=== PATIENT | male | born 1940 | race Caucasian/White ===

== ENCOUNTER 2018-06-20 23:53 | Inpatient (IN) | payer OTHER, MEDICARE ==
[~2018-06-20] VITALS: Ht 160 cm; Wt 65.3 kg
[2018-06-21] VITALS (8 sets, daily range): BP systolic 136–160; BP diastolic 69–78
--- NOTE | 2018-06-21 01:21 | NUR ---
ADMISSION: ARRIVAL OF PT IS 0005. RECEIVED REPORT FROM PORSHA LA RN FROM [facility]. PT CAME TO [place] [facility] FOR INTERMITTENT CHEST PAIN X 5DAYS DURATION ACCOMPANIED BY UPPER ABDOMINAL PAIN. PER REPORT BLOOD WORKS PERFORMED AND IMAGING/CT SCAN, TROPONIN POSITIVE, AND CT REVEALS POSSIBLE PANCREATITIS, DUODENITIS, WBC, LIPASE AND BILI ELEVATED. PT BROUGHT TO THE UNIT VIA STRETCHER ACCOMPANIED BY EMT. KEPT COMFORTABLE IN BED, ORIENTED TO UNIT POLICY AND HOURLY ROUNDING AND USE OF CALL LIGHT SYSTEM. INVENTORY OF BELONGING COMPLETED BY MARIA LUISA STRATTON. ADMISSION INTERVIEW PERFORMED. PT IS A/O X 3, [facility] SPEAKING ONLY. [facility] [place] SPEAKER ATBED SIDE FOR TRANSLATION PURPOSES. SKIN ASSESSMENT PERFORMED, PLEASE SEE SKIN ASSESSMENT LOG FOR COMPLETE DETAILS. VS TAKEN AND RECORDED. PT STATED HE'S CHEST PAIN IS A LOT BETTER AND ITS THE ABDOMEN WHOSE BOTHERING HIM. SAFETY PRECAUTIONS FOR FALL INITIATED, CALL LIGHT IN REACH. LOOM OVERHAULER MD MADE AWARE OF PT'S ARRIVAL TO UNIT, AND TO GET ADMITTING ORDERS.
[2018-06-21] MEDS ORDERED: MAG HYDROX/AL HYDROX/SIMETH 30 ML UDC PO PRN (01:30)
[2018-06-21] MEDS ORDERED: MAGNESIUM HYDROXIDE 30 ML UDC PO PRN (01:30)
[2018-06-21] MEDS ORDERED: ACETAMINOPHEN 325 MG TABLET PO PRN (01:30)
[2018-06-21] MEDS ORDERED: MORPHINE SULFATE INJ 2 MG/ML DISP.SYRIN IV PRN (01:30)
[2018-06-21] MEDS ORDERED: ONDANSETRON HCL/PF 4 MG/2 ML VIAL IVP PRN (01:30)
[2018-06-21] MEDS ORDERED: Z GUARD REMEDY 2 OZ OINT TP PRN (01:30)
[2018-06-21] MEDS ORDERED: ZOLPIDEM TARTRATE 5 MG TABLET PO PRN (01:30)
--- NOTE | 2018-06-21 01:30 | NUR ---
RN NOTES: PER REPORT FROM [facility], TROPONIN RESULT FOLLOWS: 0438PM 0.53 0600PM 0.51 0910PM 0.46
[2018-06-21] MEDS: IV NS 0.9% 1,000 ML IV SCH ×3 (02:24→21:36)
[2018-06-21] MEDS ORDERED: DULO20CA PO (02:29)
[2018-06-21] MEDS ORDERED: HYDR-3028 PO (02:29)
[2018-06-21] MEDS ORDERED: ATOR20TA PO (02:29)
[2018-06-21] MEDS ORDERED: ATEN50TA PO (02:29)
[2018-06-21] MEDS ORDERED: CLON0.1T PO (02:29)
--- NOTE | 2018-06-21 02:30 | NUR ---
RN NOTES: PT SLEEPING COMFORTABLY, NO FACIAL GRIMACE NOTED, RESPIRATION EVEN AND UNLABORED.
--- NOTE | 2018-06-21 05:59 | NUR ---
RN NOTES: OFFERED PAIN MEDICATION, BUT PT REFUSED CLAIMED HE DOESN'T HAVE PAIN AT THIS TIME, ALL TRANSLATED BY AKANKSHA SPEAKING FROZEN YOGURT MAKER
--- NOTE | 2018-06-21 06:34 | NUR ---
RN CLOSING NOTES: PT IN BED, AWAKE, REMAINS ON RA RESPIRATION EVEN AND UNLABORED, REMAINS NPO , DENIES ANY PAIN OR DISCOMFORT AT THIS TIME. IV ACCESS REMAINS PATENT AND FLUSHING WELL. VS REMAINS STABLE, NEEDS ATTENDED. SAFETY PRECAUTIONS FOR FALL REMAINS ENGAGED, CALL LIGHT IN REACH, WILL ENDORSE TO DAY RN FOR CONTINUITY OF CARE.
[2018-06-21 06:51] LABS: BASOPHILS % (AUTO) 0.2 % (0.0-2.0); EOSINOPHILS % (AUTO) 7.1 % (0.0-6.0); HEMATOCRIT 35 % (39-51); HEMOGLOBIN 11.3 g/dL (13.5-17.5); MEAN CORPUSCULAR HGB CONC 32 g/dl (31.0-36.0); MEAN CORPUSCULAR VOLUME 91 fL (80-96); MONOCYTES # (AUTO) 0.8 /CMM (0.1-1.30); MONOCYTES % (AUTO) 4.2 % (2.0-12.0); NEUTROPHILS # (AUTO) 12.8 /CMM (1.8-8.9); NEUTROPHILS % (AUTO) 67.5 % (43.0-81.0); PLATELET COUNT (AUTO) 258 /CMM (150-450); RED BLOOD CELL COUNT(AUTO) 3.81 MIL/uL (4.5-6.0)
[2018-06-21 07:07] LABS: CALCIUM, SERUM 8.3 mg/dL (8.5-10.1); CARBON DIOXIDE 20 mmol/L (21-32); CHLORIDE 110 mmol/L (98-107); GLUCOSE 91 mg/dL (74-106); PHOSPHORUS 3.2 mg/dL (2.5-4.9); POTASSIUM 4.7 mmol/L (3.5-5.1); SODIUM SERUM 142 mmol/L (136-145); UREA NITROGEN, BLOOD 48 mg/dL (7-18)
[2018-06-21 07:08] LABS: CHOLESTEROL 82 mg/dL (<200); LDL 59 mg/dL (0-99); TRIGLYCERIDES 111 mg/dL (30-150)
[2018-06-21 07:10] LABS: HDL CHOLESTEROL < 10 mg/dL (40-60)
[2018-06-21 07:29] LABS: LIPASE 3903 U/L (73-393)
--- NOTE | 2018-06-21 07:47 | NUR ---
MS/RN OPENING NOTE PATIENT IN BED IN STABLE CONDITION. A/O X 3, BRITISH SPEAKING. NO SIGNS OF ACUTE DISTRESS. NO COMPLAIN OF PAIN OR DISCOMFORT. NPO STATUS AT THIS TIME SECONDARY TO PANCREATITIS DIAGNOSIS. ON 0.9% IV FLUIDS AT 100MLS/HR. ALL NEEDS ATTENDED TO. CALL LIGHT WITHIN REACH. WILL CONTINUE TO MONITOR TO ENSURE SAFETY.
[2018-06-21] MEDS ORDERED: FURO40TA5 PO (07:55)
[2018-06-21] MEDS ORDERED: CLOP75TA15 PO (07:55)
[2018-06-21] MEDS ORDERED: NIFE60TA73 PO (07:55)
[2018-06-21] MEDS ORDERED: LISI10TA5 PO (07:55)
[2018-06-21] MEDS ORDERED: ESOM40CA52 PO (07:55)
[2018-06-21] MEDS ORDERED: DULO30CA51 PO (07:55)
--- NOTE | 2018-06-21 08:03 | NUR ---
MS/RN SPOKE WITH DR GAINES AND MADE AWARE ADMISSION MED RECON NEEDS TO BE DONE AND ALSO GOT ORDERED FOR CLEAR LIQUIDS, DC NPO
[2018-06-21] MEDS: MORPHINE SULFATE INJ 4 MG/ML DISP.SYRIN IV PRN ×3 (09:13→20:17)
--- NOTE | 2018-06-21 09:47 | NUR ---
MS/RN RECEIVED CALL FROM YUSEF FROM LAB AND SHE NOTIFIED PATIENT TROPONIN RESULT OF 0.792CH. DR GAINES AWARE. PER DR GAINES SWITCH PATIENT TO TELE.
[2018-06-21] MEDS: CLONIDINE HCL 0.1 MG TABLET PO SCH (17:36)
--- NOTE | 2018-06-21 18:33 | NUR ---
MS/RN CLOSING NOTE PATIENT IN BED IN STABLE CONDITION. A/O X 3, KYRGYZ SPEAKING. AMBULATORY WITH ASSISTANCE AND CANE. NO SIGNS OF ACUTE DISTRESS. NO COMPLAIN OF PAIN OR DISCOMFORT AT THIS TIME. ON IV FLUIDS RIGHT UPPER ARM 22G IV SITE CLEAN, DRY AND INTACT. ALL NEEDS ATTENDED TO. CALL LIGHT WITHIN REACH. WILL ENDORSE TO NEXT SHIFT FOR CONTINUITY OF CARE.
--- NOTE | 2018-06-21 19:15 | NUR ---
RN INITIAL NOTES: RECEIVED REPORT FROM KRISTOPHER SMART. PT AWAKE, A/O X4, ON RA RESPIRATION EVEN AND UNLABORED. PT C/O PAIN ON THE ABDOMEN, INFORMED THAT MORPHINE IS DUE AT 0800PM, PT WILLING TO WAIT FOR MORPHINE, DOES NOT WANT NORCO. COMMUNICATION TRANSLATED BY MONGOLIAN SPEAKING STAFF. IV ACCESS PATENT AND FLUSHING WELL, INFUSING WITH NS AT 100ML/HR. URINAL WITHIN REACH. SAFETY PRECAUTIONS FOR FALL INITIATED, CALL LIGHT IN REACH, WILL CONTINUE MONITORING PT.
--- NOTE | 2018-06-21 19:30 | NUR ---
rn notes: placed by day rn for tele observation as troponin elevated, md aware, on sinus rhythm hr 77
--- NOTE | 2018-06-21 20:18 | NUR ---
PRN MORPHINE: PT C/O ABDOMINAL PAIN 03/07 REQUESTING FOR MORPHINE, PRN MORPHINE 2MG IVP ADMINISTERED TO THE PT AT THIS TIME, WILL COTNINUE TO MONITOR AND REASSESS
[2018-06-22] MEDS: MORPHINE SULFATE INJ 4 MG/ML DISP.SYRIN IV PRN ×4 (05:52→22:01)
--- NOTE | 2018-06-22 05:53 | NUR ---
PRN MORPHINE: PT C/O MEDIAL ABDOMINAL PAIN 03/07 REQUESTING FOR MORPHINE, PRN MORPHINE 2MG IVP ADMINISTERED TO THE PT AT THIS TIME, WILL CONTINUE TO MONITOR AND REASSESS PAIN LEVEL
--- NOTE | 2018-06-22 06:36 | NUR ---
RN CLOSING NOTES: PT RESTING IN BED, REMAIN ON RA DENIES ANY SOB, LAST PAIN MEDS ADMINISTERED AT 0600AM. IV ACCESS REMAINS PATENT AND FLUSHING WELL, INFUSING WITH NS AT 100ML/HR. BLE OFFLOADED. VS REMAINS STABLE, NEEDS ATTENDED. SAFETY PRECAUTIONS FOR FALL REMAINS ENGAGED, CALL LIGHT IN REACH, WILL ENDORSE TO DAY RN FOR CONTINUITY OF CARE.
[2018-06-22 06:41] LABS: BASOPHILS % (AUTO) 0.1 % (0.0-2.0); EOSINOPHILS % (AUTO) 0.3 % (0.0-6.0); HEMATOCRIT 34 % (39-51); LYMPHOCYTES # (AUTO) 1.7 /CMM (0.8-4.8); LYMPHOCYTES % (AUTO) 12.2 % (20.0-44.0); MEAN CORPUSCULAR HGB CONC 33 g/dl (31.0-36.0); MEAN CORPUSCULAR VOLUME 91 fL (80-96); MONOCYTES # (AUTO) 0.5 /CMM (0.1-1.30); MONOCYTES % (AUTO) 3.6 % (2.0-12.0); NEUTROPHILS # (AUTO) 11.4 /CMM (1.8-8.9); NEUTROPHILS % (AUTO) 83.8 % (43.0-81.0); PLATELET COUNT (AUTO) 288 /CMM (150-450); RED BLOOD CELL COUNT(AUTO) 3.72 MIL/uL (4.5-6.0); WHITE BLOOD COUNT (AUTO) 13.6 K/uL (4.3-11.0)
[2018-06-22 07:02] LABS: ALANINE AMINOTRANSFERASE 7 U/L (12-78); ALBUMIN 1.7 g/dL (3.4-5.0); ALKALINE PHOSPHATASE 54 U/L (46-116); ASPARTATE AMINOTRANSFERASE 21 U/L (15-37); BILIRUBIN,DIRECT 0.5 mg/dL (0.0-0.2); BILIRUBIN,TOTAL 0.9 mg/dL (0.2-1.0); CALCIUM, SERUM 8.5 mg/dL (8.5-10.1); CARBON DIOXIDE 22 mmol/L (21-32); CHLORIDE 111 mmol/L (98-107); GLUCOSE 99 mg/dL (74-106); MAGNESIUM 1.8 mg/dL (1.8-2.4); PHOSPHORUS 4.2 mg/dL (2.5-4.9); SODIUM SERUM 142 mmol/L (136-145); TOTAL PROTEIN, SERUM 6.9 g/dL (6.4-8.2); UREA NITROGEN, BLOOD 50 mg/dL (7-18)
--- NOTE | 2018-06-22 07:10 | NUR ---
TROP 0.582: TROPONIN RESULT REPORTED BY YUSEF FROM LAB, TROP 0.582, CURRENTLY IN THE UNIT, WITH ORDERS FOR TROP Q6HRS, AND WILL CONTINUE TO MONITOR
--- NOTE | 2018-06-22 07:15 | NUR ---
MS/RN OPENING NOTE THE PATIENT IS RECEIVED AWAKE AND IN BED. ALERT AND ORIENTED X4. DENIES SOB. RESPIRATION REGULAR AND UNLABORED. COMPLAINS OF ABDOMINAL PAIN / BUT DOES NOT WANT MEDICATION AT THIS TIME. WILL OFFER PAIN MEDICATION LATER AGAIN. MATHEUS G 22 PATENT AND NORMAL SALINE INFUSING AT 100ML/HR AND NO S/S INFILTRATION NOTED. RAC G 20 PATENT AND SALINE LOCKED. BED LOW AND LOCKED. SIDE RAILS UP X3. CALL LIGHT WITHIN REACH. ENCOURAGED TO PRESS THE CALL LIGHT FOR ASSISTANCE. WILL CONTINUE TO MONITOR.
[2018-06-22 08:00] VITALS: BP 147/68
[2018-06-22] MEDS: CLOPIDOGREL BISULFATE 75 MG TABLET PO SCH (09:15)
[2018-06-22] MEDS: DULOXETINE HCL 30 MG CAPSULE.DR PO SCH (09:15)
[2018-06-22] MEDS: ATENOLOL 50 MG TABLET PO SCH (09:16)
[2018-06-22] MEDS: NIFEdipine XL (30MG) 30 MG TAB PO SCH (09:16)
[2018-06-22] MEDS: IV NS 0.9% 1,000 ML IV SCH ×2 (09:18→17:51)
--- NOTE | 2018-06-22 16:00 | NUR ---
MS/RN NOTE DR GAINES IS MADE AWARE KUB RESULT AND PER MD NO NEW ORDER.
[2018-06-22 16:16] VITALS: BP 134/55
--- NOTE | 2018-06-22 16:52 | NUR ---
MS/RN NOTE DR GAINES IS MADE AWARE OF MRSA NARES AND NEW ORDER OF BACTORBEN IS RECEIVED. THE ORDER IS READ BACK, VERIFIED. NOTED AND CARRIED OUT.
[2018-06-22] MEDS: CLONIDINE HCL 0.1 MG TABLET PO SCH (17:50)
--- NOTE | 2018-06-22 18:13 | NUR ---
MS/RN CLOSING NOTE PATIENT ALERT AND ORIENTED X4. DENIES PAIN AT THIS TIME. RESPIRATION REGULAR AND UNLABORED AND DENIES PAIN. PATIENT IN NO APPARENT DISTRESS. MATHEUS G 22 PATENT AND NORMAL SALINE INFUSING AT 100ML/HR AND NO S/S INFILTRATION. RAC G 20 PATENT AND SALINE LOCKED. BED LOW AND LOCKED. SIDE RAILS UP X3. CALL LIGHT WITHIN REACH. BED ALARM ON. WILL ENDORSE TO ANIMAL HERDER.
--- NOTE | 2018-06-22 19:25 | NUR ---
RN OPENING NOTE Patient received in awake bed. Alert, oriented x 4. Breathing even and unlabored. Not in any distress. Peripheral IV infusing at 100mL/hr. IV site on RAC g#22 patent, S/L. Call arnold within reach. Bed in low, locked position. Patient stable as endorsed by the AM nurse. Will continue to monitor accordingly.
[2018-06-22 20:00] VITALS: BP 129/66
[2018-06-22] MEDS: MUPIROCIN OINT 2% 22 GM TUBE SCH (20:46)
--- NOTE | 2018-06-22 22:03 | NUR ---
RN NOTES PT C/O ABDOMINAL PAIN, 04/07. PRN MORPHINE 2MG IVP GIVEN ORDERED. WILL CONTINUE TO MONITOR AND REASSESS PAIN LEVEL
[2018-06-23] MEDS: IV NS 0.9% 1,000 ML IV SCH (04:07)
[2018-06-23] MEDS: MORPHINE SULFATE INJ 4 MG/ML DISP.SYRIN IV PRN ×2 (04:13→17:50)
--- NOTE | 2018-06-23 04:15 | NUR ---
RN NOTES PT C/O ABDOMINAL PAIN 03/07 REQUESTING FOR MORPHINE, PRN MORPHINE 2MG IVP ADMINISTERED TO THE PT ORDERED. WILL CONTINUE TO MONITOR AND REASSESS PAIN LEVEL
--- NOTE | 2018-06-23 06:33 | NUR ---
RN CLOSING NOTES Patient resting in bed, remains on room air. Denies any SOB. Last pain medication administered at 04:13hrs with good results. Peripheral IV on MATHEUS infusing at 100 mL/hr. Patient able to ambulate to the bathroom with minimal assist. Contact precautions maintained. Call light within reach. Bed in low, locked position. Will endorse CLARENCE to oncoming RN.
--- NOTE | 2018-06-23 07:53 | NUR ---
MS RN OPENING NOTES RECEIVED PT FROM NIGHTSHIFT NURSE IN STABLE CONDITION. PT IS A./O X3. NO SOB NOTED. BREATHING IS EVEN AND UNLABORED. PT ON RA AND SATING WELL. HE COMPLAINS OF LOWER ABDOMINAL PAIN AT THIS TIME RATED A 6/10. WILL ADMINISTER PRN PAIN MEDICATION. IV(S) TO RIGHT FOREARM NOTED TO BE PATENT AND INTACT. NO REDNESS OR SIGNS OF INFILTRATION NOTED. BED IN LOW LOCKED POSITION, SIDE RAILS UP X2, CALL LIGHT WITHIN REACH, CONTACT ISOLATION OBSERVED. WILL CONTINUE TO MONITOR
[2018-06-23] MEDS: CLOPIDOGREL BISULFATE 75 MG TABLET PO SCH (08:58)
[2018-06-23] MEDS: HYDROCODONE/APAP 5/325MG 1 EACH TABLET PO PRN (08:59)
[2018-06-23] MEDS: NIFEdipine XL (30MG) 30 MG TAB PO SCH (08:59)
[2018-06-23] MEDS: DULOXETINE HCL 30 MG CAPSULE.DR PO SCH (08:59)
[2018-06-23] MEDS: MUPIROCIN OINT 2% 22 GM TUBE SCH ×2 (09:00→20:42)
[2018-06-23] MEDS: ATENOLOL 50 MG TABLET PO SCH (09:08)
--- NOTE | 2018-06-23 11:36 | NUR ---
MS RN NOTES: DIETARY ORDER CLARIFICATION DR GAINES CONTACTED PT'S DIET ORDER WAS CANCELLED. PER MD "PT WILL BE SEEN BY GI, KEEP NPO UNTIL THEN"
[2018-06-23 12:00] LABS: CALCIUM, SERUM 8.6 mg/dL (8.5-10.1); CARBON DIOXIDE 18 mmol/L (21-32); CHLORIDE 111 mmol/L (98-107); CREATININE 1.6 mg/dL (0.6-1.3); GLUCOSE 122 mg/dL (74-106); MAGNESIUM 2.1 mg/dL (1.8-2.4); PHOSPHORUS 3.2 mg/dL (2.5-4.9); POTASSIUM 4.5 mmol/L (3.5-5.1); SODIUM SERUM 141 mmol/L (136-145); UREA NITROGEN, BLOOD 57 mg/dL (7-18)
[2018-06-23 12:19] LABS: BASOPHILS % (AUTO) 0.1 % (0.0-2.0); EOSINOPHILS % (AUTO) 0.8 % (0.0-6.0); HEMATOCRIT 36 % (39-51); HEMOGLOBIN 11.7 g/dL (13.5-17.5); LYMPHOCYTES # (AUTO) 1.3 /CMM (0.8-4.8); LYMPHOCYTES % (AUTO) 12.9 % (20.0-44.0); MEAN CORPUSCULAR HGB CONC 33 g/dl (31.0-36.0); MEAN CORPUSCULAR VOLUME 91 fL (80-96); MONOCYTES # (AUTO) 0.2 /CMM (0.1-1.30); MONOCYTES % (AUTO) 2.2 % (2.0-12.0); NEUTROPHILS # (AUTO) 8.1 /CMM (1.8-8.9); PLATELET COUNT (AUTO) 327 /CMM (150-450); RED BLOOD CELL COUNT(AUTO) 3.94 MIL/uL (4.5-6.0); WHITE BLOOD COUNT (AUTO) 9.7 K/uL (4.3-11.0)
[2018-06-23] MEDS: IV NS 0.9% 1,000 ML IV PRN (12:30)
--- NOTE | 2018-06-23 17:35 | NUR ---
MS RN NOTES; GI CONSULT DR LOPEZ AT BEDSIDE. PER MD "PT MAY RESUME CLEAR LIQUID DIET, AND ORDER A CT OF HIS ABDOMEN WITH CONTRAST". WILL CARRY OUT ORDERS
[2018-06-23] MEDS: CLONIDINE HCL 0.1 MG TABLET PO SCH (18:00)
--- NOTE | 2018-06-23 18:39 | NUR ---
MS RN NOTES: CT ABDOMEN WITH CONTRAST DR LOPEZ MADE AWARE OF PT'S CREATINE LEVEL AND RADIOLOGIST'S CONCERNS WITH THE CONTRAST MEDIA. PER MD "OBTAIN A CT OF TH E ABDOMEN AND PLEVIS WITH OUT CONTRAST INSTEAD" .
--- NOTE | 2018-06-23 19:03 | NUR ---
MS RN CLOSING NOTES PT REMAINS STABLE. VITALS STABLE THROUGHOUT SHIFT. IV REMAINS PATENT AND INTACT. PT BEING TAKEN DOWN FOR CT SCAN. SAFETY AND ISOLATION MEASURES REMAIN IN PLACE. WILL ENDORSE TO NIGHTSHIFT RN FOR CLARENCE
[2018-06-23 19:06] VITALS: BP 121/68
[2018-06-23 20:00] VITALS: BP 127/65
--- NOTE | 2018-06-23 20:49 | NUR ---
RN NOTE CALLED DR LYUBOV Garcia AND NOTIFIED DOCTOR REGARDING CT SCAN OF THE ABD AND PELVIC RESULTS, NO NEW ORDERS GIVEN AT THIS TIME
[2018-06-24] MEDS: IV NS 0.9% 1,000 ML IV PRN ×2 (05:20→21:27)
[2018-06-24] MEDS: HYDROCODONE/APAP 5/325MG 1 EACH TABLET PO PRN (06:22)
--- NOTE | 2018-06-24 07:30 | NUR ---
MS RN RECEIVED ON BED, AWAKE,ALERT,ORIENTED X4,NOT IN ANY FORM OF DISTRESS, RESPIRATIONS EVEN AND UNLABORED,NO SOB NOTED, WILL MONITOR PATIENT'S CONDITION.
[2018-06-24 08:00] VITALS: BP 112/62
[2018-06-24 08:49] LABS: EOSINOPHILS % (AUTO) 0.2 % (0.0-6.0); HEMATOCRIT 34 % (39-51); HEMOGLOBIN 11.2 g/dL (13.5-17.5); LYMPHOCYTES # (AUTO) 0.7 /CMM (0.8-4.8); LYMPHOCYTES % (AUTO) 7.1 % (20.0-44.0); MEAN CORPUSCULAR HGB CONC 33 g/dl (31.0-36.0); MEAN CORPUSCULAR VOLUME 91 fL (80-96); MONOCYTES # (AUTO) 0.3 /CMM (0.1-1.30); MONOCYTES % (AUTO) 3.6 % (2.0-12.0); NEUTROPHILS # (AUTO) 8.3 /CMM (1.8-8.9); NEUTROPHILS % (AUTO) 89.1 % (43.0-81.0); PLATELET COUNT (AUTO) 343 /CMM (150-450); WHITE BLOOD COUNT (AUTO) 9.4 K/uL (4.3-11.0)
[2018-06-24 08:54] LABS: CALCIUM, SERUM 8.3 mg/dL (8.5-10.1); CARBON DIOXIDE 18 mmol/L (21-32); CHLORIDE 112 mmol/L (98-107); CREATININE 1.7 mg/dL (0.6-1.3); GLUCOSE 145 mg/dL (74-106); POTASSIUM 4.5 mmol/L (3.5-5.1); SODIUM SERUM 143 mmol/L (136-145); UREA NITROGEN, BLOOD 58 mg/dL (7-18)
--- NOTE | 2018-06-24 09:30 | NUR ---
MS SMART BREAKFAST SERVED,DUE MEDS GIVEN,TOLERATED WELL.
[2018-06-24] MEDS ORDERED: FLUCONAZOLE IN NS 100 MG in PREMIX 1 EA IV SCH ×2 (10:00)
[2018-06-24] MEDS: CLOPIDOGREL BISULFATE 75 MG TABLET PO SCH (10:17)
[2018-06-24] MEDS: DULOXETINE HCL 30 MG CAPSULE.DR PO SCH (10:17)
[2018-06-24] MEDS: NIFEdipine XL (30MG) 30 MG TAB PO SCH (10:17)
[2018-06-24] MEDS: ATENOLOL 50 MG TABLET PO SCH (10:18)
[2018-06-24] MEDS: FLUCONAZOLE (100 MG) 100 MG TABLET PO SCH (10:20)
--- NOTE | 2018-06-24 10:45 | NUR ---
MS SMART WAS SEEN BY DR. NOEL Hernandez/ ORDERS MADE AND CARRIED OUT.
[2018-06-24] MEDS: MUPIROCIN OINT 2% 22 GM TUBE SCH ×2 (10:58→21:43)
--- NOTE | 2018-06-24 11:05 | NUR ---
WOUND CARE CONSULT WOUND CARE RECEIVED CONSULT FOR RIGHT TOE WOUND. WOUND CARE WILL DEFER CONSULT AND TREATMENT PLANS TO DPM DR AC HE IS CURRENTLY FOLLOWING THIS PATIENT. PATIENT WITH CRISPIN AT 17, ALL PRESSURE ULCER PERVENTION MEASURES ARE NOTED TO BE IN PLACE. WILL SEE PRN.
--- NOTE | 2018-06-24 11:30 | NUR ---
MS RN WAS SEEN BY DR. RICARDO Hernandez/ ORDERS MADE AND CARRIED OUT.
[2018-06-24] MEDS ORDERED: TPN/PPN PER PHARMACY IV PRN (14:00)
--- NOTE | 2018-06-24 15:32 | NUR ---
MS RN NEW PICC LINE INSERTED AT RIGHT UPPER ARM, READY TO USE PER PICC LINE BERRY PAULA.
[2018-06-24 16:00] VITALS: BP 124/64
[2018-06-24 16:57] LABS: MAGNESIUM 2.1 mg/dL (1.8-2.4); PHOSPHORUS 3.1 mg/dL (2.5-4.9)
[2018-06-24] MEDS ORDERED: [UNRECOGNIZED DRUG - OTHER] IV PRN ×4 (17:30)
[2018-06-24] MEDS ORDERED: FEE TPN 1 MIN EA MC ONE (17:31)
[2018-06-24] MEDS: CLONIDINE HCL 0.1 MG TABLET PO SCH (18:00)
--- NOTE | 2018-06-24 18:17 | NUR ---
MS RN ON BED, NO DISTRESS NOTED, STILL WAITING FOR THE TPN IV FROM PHARMACY, NOT YET AVAILABLE.
[2018-06-24] MEDS: BLOOD SUGAR DIAGNOSTIC 1 EACH STRIP IN SCH (18:19)
[2018-06-24] MEDS: INSULIN REGULAR, HUMAN 100 UNIT/ML 3 ML VIAL SQ PRN (18:41)
[2018-06-24 20:00] VITALS: BP 116/65
[2018-06-24 22:00] VITALS: BP 116/65
[2018-06-25] MEDS: BLOOD SUGAR DIAGNOSTIC 1 EACH STRIP IN SCH ×4 (00:15→18:36)
[2018-06-25] MEDS: INSULIN REGULAR, HUMAN 100 UNIT/ML 3 ML VIAL SQ PRN ×3 (00:19→18:46)
[2018-06-25] MEDS: MORPHINE SULFATE INJ 4 MG/ML DISP.SYRIN IV PRN ×2 (03:32→18:36)
--- NOTE | 2018-06-25 03:36 | NUR ---
MS/RN REQUESTED BERRY VALLES, FROM [facility] FOR SAMMARINESE TRANSLATION. PER BERRY VALLES PATIENT IS IN PAIN BUT UNABLE TO SAY PAIN LEVEL, AND PATIENT REQUESTS FOR PAIN MEDICATION. PATIENT IS ALERT AND ORIENTED. MORPHINE 2 MG IVP WAS GIVEN ORDERED. WILL MONITOR.
--- NOTE | 2018-06-25 04:13 | NUR ---
MS/RN PATIENT APPEAR SLEEPING AT THIS TIME, APPEAR COMFORTABLE, NO DISTRESS NOTED, CALL LIGHT IN REACH. WILL CONTINUE TO MONITOR.
--- NOTE | 2018-06-25 06:37 | NUR ---
MS/RN PATIENT IS AWAKE, ALERT, CALM AND COMFORTABLE, NO DISTRESS NOTED, ALL NEEDS ATTENDED AT THIS TIME, WILL CONTINUE TO MONITOR.
--- NOTE | 2018-06-25 07:30 | NUR ---
MS RN RECEIVED ON BED,AWAKE,ALERT,ORIENTED X3,NOT IN ANY FORM OF DISTRESS,RESPIRATIONS EVEN AND UNLABORED,NO SOB NOTED,LUNGS ARE CLEAR,ABDOMEN SOFT,POSITIVE BOWEL SOUNDS,DENIES PAIN AT THIS TIME,WILL MONITOR PATIENT.
[2018-06-25 07:48] LABS: BASOPHILS % (AUTO) 0.1 % (0.0-2.0); EOSINOPHILS % (AUTO) 0.7 % (0.0-6.0); HEMATOCRIT 33 % (39-51); LYMPHOCYTES # (AUTO) 0.9 /CMM (0.8-4.8); LYMPHOCYTES % (AUTO) 8.9 % (20.0-44.0); MEAN CORPUSCULAR HGB CONC 33 g/dl (31.0-36.0); MEAN CORPUSCULAR VOLUME 91 fL (80-96); MONOCYTES # (AUTO) 0.2 /CMM (0.1-1.30); MONOCYTES % (AUTO) 2.2 % (2.0-12.0); NEUTROPHILS # (AUTO) 8.9 /CMM (1.8-8.9); NEUTROPHILS % (AUTO) 88.1 % (43.0-81.0); PLATELET COUNT (AUTO) 366 /CMM (150-450); RED BLOOD CELL COUNT(AUTO) 3.67 MIL/uL (4.5-6.0); WHITE BLOOD COUNT (AUTO) 10.1 K/uL (4.3-11.0)
[2018-06-25 07:56] LABS: ALANINE AMINOTRANSFERASE 23 U/L (12-78); ALKALINE PHOSPHATASE 106 U/L (46-116); ASPARTATE AMINOTRANSFERASE 53 U/L (15-37); BILIRUBIN,TOTAL 1.2 mg/dL (0.2-1.0); CALCIUM, SERUM 8.3 mg/dL (8.5-10.1); CARBON DIOXIDE 18 mmol/L (21-32); CHLORIDE 116 mmol/L (98-107); CREATININE 1.6 mg/dL (0.6-1.3); GLUCOSE 162 mg/dL (74-106); LIPASE 1417 U/L (73-393); MAGNESIUM 2.4 mg/dL (1.8-2.4); PHOSPHORUS 2.5 mg/dL (2.5-4.9); SODIUM SERUM 147 mmol/L (136-145); TOTAL PROTEIN, SERUM 6.7 g/dL (6.4-8.2); UREA NITROGEN, BLOOD 65 mg/dL (7-18)
[2018-06-25 08:00] VITALS: BP 143/59
[2018-06-25 08:33] LABS: ALBUMIN 1.4 g/dL (3.4-5.0)
[2018-06-25] MEDS: ATENOLOL 50 MG TABLET PO SCH (09:00)
[2018-06-25] MEDS: FLUCONAZOLE (100 MG) 100 MG TABLET PO SCH (09:00)
[2018-06-25] MEDS: NIFEdipine XL (30MG) 30 MG TAB PO SCH (09:00)
[2018-06-25] MEDS: CLOPIDOGREL BISULFATE 75 MG TABLET PO SCH (09:00)
[2018-06-25] MEDS: DULOXETINE HCL 30 MG CAPSULE.DR PO SCH (09:00)
--- NOTE | 2018-06-25 09:00 | NUR ---
MS RN NPO AT THIS TIME,WILL MONITOR PATIENT'S CONDITION.
[2018-06-25] MEDS: MUPIROCIN OINT 2% 22 GM TUBE SCH ×2 (09:40→22:50)
[2018-06-25] MEDS ORDERED: [UNRECOGNIZED DRUG - OTHER] IV PRN ×4 (10:00)
--- NOTE | 2018-06-25 10:50 | NUR ---
MS RN WAS SEEN BY DR. COHEN, WILL BE SEEN BY DR. DEAN.
--- NOTE | 2018-06-25 12:30 | NUR ---
MS RN WAS SEEN BY DR. JERMAINE Hernandez/ JOSSE TO INSERT A NASAL JEJUNAL TUBE BY RADIOLOGY.
--- NOTE | 2018-06-25 14:53 | NUR ---
MS RN PATIENT LOOKS COLD AND CLAMMY, BS CHECKED PER CN ORDER - 167 -DIN NOT GIVE COVERAGE WILL RECHECK LATER.
--- NOTE | 2018-06-25 15:00 | NUR ---
MS RN CALLED RADIOLOGY BUT THEY ARE NOT INSERTING THIS TUBE, TEXT DR. COHEN, MADE AWARE THAT TUBE WAS NOT INSERTED.
[2018-06-25 16:00] VITALS: BP 142/70
[2018-06-25] MEDS ORDERED: TPN BAG #2 IV PRN ×2 (16:00)
--- NOTE | 2018-06-25 16:00 | NUR ---
MS RN CALLED DR. DEAN, MADE AWARE THAT TUBE WAS NOT INSERTED,NEDDS TO BE INSERTED BY TRISH MYERS TO CONTINUE TPN PER DR. DEAN
[2018-06-25] MEDS: CLONIDINE HCL 0.1 MG TABLET PO SCH (17:37)
--- NOTE | 2018-06-25 18:05 | NUR ---
MS SMART BS - 150 - 2 UNITS GIVEN.
--- NOTE | 2018-06-25 19:05 | NUR ---
MS RN ON BED, NO DISTRESS NOTED,FAMILY AT BEDSIDE.
[2018-06-25 20:00] VITALS: BP 121/62
--- NOTE | 2018-06-25 20:00 | NUR ---
MS/DIGITAL COMMENTATOR AT BEDSIDE, PER FAMILY THEY HAVE NOT TALKED TO ANY DOCTOR FOR 5 DAYS NOW, SENT MESSAGE DR. COHEN, DR. SILVA WAS HERE AND TALKED TO FAMILY, JASMIN SALDANA RN FROM DAY SHIFT ALSO TALED TO THE FAMILY WHO AGREED TO JUST TALK TO THE DOCTOR IN A.M.
--- NOTE | 2018-06-25 20:00 | NUR ---
MS/RN PATIENT TRYING TO URINATE, URINAL GIVEN, BUT UNABLE TO URINATE, DID BLADDER LHPB=171. WILL MONITOR PATIENT FOR VOIDING, OTHERWISE, WILL GET AN ORDER FOR F/C.
[2018-06-25] MEDS: IV NS 0.9% 1,000 ML IV PRN (20:44)
--- NOTE | 2018-06-25 22:57 | NUR ---
MS/RN NO URINE OUTPUT YET. OBTAINED ORDER FOR F/C FROM SIM MEYER NP.
--- NOTE | 2018-06-25 23:30 | NUR ---
MS/RN F/C INSERTED, 600 MLS, CLEAR, [place] URINE OUTPUT NOTED.
[2018-06-26] VITALS (44 sets, daily range): BP systolic 58–116; BP diastolic 20–74
[2018-06-26] MEDS: BLOOD SUGAR DIAGNOSTIC 1 EACH STRIP IN SCH ×5 (00:17→23:57)
[2018-06-26] MEDS: INSULIN REGULAR, HUMAN 100 UNIT/ML 3 ML VIAL SQ PRN ×3 (00:21→13:16)
--- NOTE | 2018-06-26 01:08 | NUR ---
MS/RN PATIENT IS SLEEPING AT THIS TIME, APPEAR COMFORTABLE, BREATHING EVEN AND UNLABORED, CALL LIGHT IN REACH.WILL CONTINUE TO MONITOR.
--- NOTE | 2018-06-26 06:01 | NUR ---
MS/RN PICC LINE DRESSING CHANGED PER PROTOCOL ASEPTICALLY.
--- NOTE | 2018-06-26 06:02 | NUR ---
MS/RN PATIENT IS SLEEPING, AROUSABLE, APPEAR COMFORTABLE, NO SIGNS OF DISTRESS NOTED, CALL LIGHT IN REACH. ALL NEEDS ATTENDED AT THIS TIME, WILL CONTINUE TO MONITOR.
[2018-06-26 07:37] LABS: BASOPHILS % (AUTO) 0.1 % (0.0-2.0); EOSINOPHILS % (AUTO) 0.1 % (0.0-6.0); HEMATOCRIT 34 % (39-51); HEMOGLOBIN 10.9 g/dL (13.5-17.5); LYMPHOCYTES # (AUTO) 0.5 /CMM (0.8-4.8); LYMPHOCYTES % (AUTO) 2.4 % (20.0-44.0); MEAN CORPUSCULAR HGB CONC 32 g/dl (31.0-36.0); MEAN CORPUSCULAR VOLUME 91 fL (80-96); MONOCYTES # (AUTO) 0.2 /CMM (0.1-1.30); MONOCYTES % (AUTO) 0.7 % (2.0-12.0); NEUTROPHILS # (AUTO) 22.3 /CMM (1.8-8.9); NEUTROPHILS % (AUTO) 96.7 % (43.0-81.0); PLATELET COUNT (AUTO) 322 /CMM (150-450); RED BLOOD CELL COUNT(AUTO) 3.72 MIL/uL (4.5-6.0)
[2018-06-26 07:59] LABS: ALANINE AMINOTRANSFERASE 31 U/L (12-78); ALKALINE PHOSPHATASE 75 U/L (46-116); ASPARTATE AMINOTRANSFERASE 88 U/L (15-37); BILIRUBIN,TOTAL 1.6 mg/dL (0.2-1.0); CALCIUM, SERUM 8.2 mg/dL (8.5-10.1); CARBON DIOXIDE 17 mmol/L (21-32); CHLORIDE 120 mmol/L (98-107); CREATININE 1.7 mg/dL (0.6-1.3); GLUCOSE 151 mg/dL (74-106); LIPASE 995 U/L (73-393); MAGNESIUM 2.2 mg/dL (1.8-2.4); PHOSPHORUS 3.1 mg/dL (2.5-4.9); SODIUM SERUM 151 mmol/L (136-145); TOTAL PROTEIN, SERUM 6.1 g/dL (6.4-8.2); UREA NITROGEN, BLOOD 68 mg/dL (7-18)
--- NOTE | 2018-06-26 08:00 | NUR ---
MS/RN RECEIVED PATIENT SLEEPING, AROUSABLE, APPEAR COMFORTABLE, BEDSIDE RAILS UP, NO SIGNS OF DISTRESS NOTED, CALL LIGHT WITHIN REACH. ALL NEEDS ATTENDED AT THIS TIME, WILL CONTINUE TO MONITOR.
[2018-06-26 08:03] LABS: ALBUMIN 1.2 g/dL (3.4-5.0)
[2018-06-26] MEDS: FLUCONAZOLE (100 MG) 100 MG TABLET PO SCH ×2 (09:00→09:20)
[2018-06-26] MEDS: DULOXETINE HCL 30 MG CAPSULE.DR PO SCH ×2 (09:00→09:20)
[2018-06-26] MEDS: NIFEdipine XL (30MG) 30 MG TAB PO SCH ×2 (09:00→09:21)
[2018-06-26] MEDS: MUPIROCIN OINT 2% 22 GM TUBE SCH ×2 (09:00→22:07)
[2018-06-26] MEDS: ATENOLOL 50 MG TABLET PO SCH ×2 (09:00→09:20)
[2018-06-26] MEDS: CLOPIDOGREL BISULFATE 75 MG TABLET PO SCH ×2 (09:00→09:21)
--- NOTE | 2018-06-26 09:05 | NUR ---
MS RN NOTES FAMILY AT BEDSIDE, ASKING REGARDING PATIENT CARE MANAGEMENT. CALLED AND NOTIFIED MD REGARDING FAMILY'S CONCERN.
[2018-06-26] MEDS: MORPHINE SULFATE INJ 4 MG/ML DISP.SYRIN IV PRN (09:31)
--- NOTE | 2018-06-26 09:40 | NUR ---
MS RN NOTES SEEN AND EXAMINED BY DR. Stas COLÓN. AWAITING FOR NEW ORDERS. WILL CONTINUE TO MONITOR PATIENT AT THIS TIME.
[2018-06-26] MEDS ORDERED: IV D5W 1,000 ML IV PRN (13:03)
--- NOTE | 2018-06-26 13:37 | NUR ---
MS RN NOTES ASSESSED AND NOTED PATIENT O2 SAT 70%, SLIGHTLY SLUGGISH,ADMINISTERED 100% O2, VITAL SIGNS TAKEN AND RECORDED BP 108/61; HR 56; TEMP 97.4 BLOOD GLUCOSE AT 1200 144MG/DL 2 UNITS OF INSULIN GIVEN ORDERED. MD AWARE, WITH ORDERS FOR STAT ABG; CHEST XRAY STAT.
--- NOTE | 2018-06-26 13:38 | NUR ---
MS RN NOTES MD ORDERED FOR TRANSFER TO ICU, PATIENT TRANSPORTED TO ICU VIA BED, MONITORED ACCORDINGLY, PATIENT SATURATION 95%.
--- NOTE | 2018-06-26 13:40 | NUR ---
MS RN NOTES REPORT GIVEN TO ICU NURSE JOSÉ MIGUEL. PATIENT NOT IN ACUTE RESPIRATORY DISTRESS AT THIS TIME. ALL NEEDS ATTENDED. ENDORSED FOR CONTINUOUS CARE AND MANAGEMENT.
[2018-06-26 14:15] LABS: ABG OXYGEN SATURATION 82.8 % (92.0-98.5); ABG PCO2 45.3 mmHg (35.0-45.0); ABG PH 6.948 (7.350-7.450); ABG PO2 72.1 mmHg (75.0-100.0); AaDO2 595.6 mmHg; COHb 0.3 % (0.5-1.5); MetHb 0.7 % (0.0-1.5); SITE, ABG Left Brachial; VENT MODE, BG NRB
[2018-06-26] MEDS ORDERED: SODIUM BICARBONATE SYR 50 MEQ/50 ML DISP.SYRIN IV STA (14:18)
[2018-06-26] MEDS ORDERED: Sodium Acetate 100 MEQ in IV D5W 1,000 ML IV ONE (15:00)
--- NOTE | 2018-06-26 15:00 | NUR ---
1400:PATIENT TRANSFERRED [facility] FLOOR FOR RESCUE BIPAP MANAGEMENT PER RN. PATIENT APPEARS VERY LETHARGIC UPON TRANSFER, BARELY OPENING EYES ON COMMAND. MONITOR SHOWS ST 100'S. INITIAL SBP>90. UNABLE TO OBTAIN ACCURATE SPO2 . DR. MORALES IN UNIT-AWAITING FOR ABG RESULTS. 1415 ABG SHOWS PH 6.9, PCO2 45, PO2 72,HCO3 9.7.. BICARB [address] PER [address] MORALES. ER MD CALLED FOR INTUBATION. 1435: PATIENT INTUBATED BY ER MD . ETT 7.5 , 25 AT [facility]. STAT CXR ORDERED TO CONFIRM ETT PLACEMENT.
--- NOTE | 2018-06-26 15:04 | NUR ---
RT NOTE PT INTUBATED BY PORSHA MYERS. 7.5 ETT 25 CM AT LIP. CUFF INFLATED. ETT SECURE. VENTILATOR SETTINGS PRESCRIBED AC 18 550 100% +0. ALARMS SET PER PROTOCOL AND AUDIBLE. VENT PLUGGED IN TO RED OUTLET. AMBU BAG AT BED SIDE. Addendum: 06/26/18 at 1508 by DARELL MALIN RT Amended: Links added.
[2018-06-26] MEDS ORDERED: IV NS 0.9% 500 ML IV ONE (16:00)
[2018-06-26] MEDS ORDERED: Sodium Acetate 100 MEQ in IV D5W 1,000 ML IV PRN ×2 (16:00→16:30)
[2018-06-26 16:10] LABS: ABG BASE EXCESS -19.7 mmol/L; ABG OXYGEN SATURATION 85.8 % (92.0-98.5); ABG PCO2 40.8 mmHg (35.0-45.0); ABG PH 7.024 (7.350-7.450); ABG PO2 71.7 mmHg (75.0-100.0); AaDO2 600.5 mmHg; COHb 0.3 % (0.5-1.5); MetHb 0.6 % (0.0-1.5); PEEP,BG 0 cm H2O; SITE, ABG Left Brachial; VENT MODE, BG AC 18 550 100% +0; VT, ABG 550 mL
--- NOTE | 2018-06-26 16:15 | NUR ---
FOLLOW UP ABG RESULTS RELAYED TO DR. MORALES WITH NEW ORDERS RECEIVED. TO GIVE 1 AMP BICARB, VENT SETTINGS CHANGED , INCREASED TV 650 , DONE BY DARELL PEREZ. REPEAT ABG IN 2 HRS.
--- NOTE | 2018-06-26 16:25 | NUR ---
SPOKE TO DR. WHITE RE: AFIB WITH RVR. , DECREASED BP. PER MD-INCREASE IVF SODIUM ACETATE 100 MEQ IN D5W 1L TO 250 MLS/HR X 1L THEN DECREASE TO 125 MLS/HR PREVIOUSLY ORDERED. SPOKE TO PHARMACY RE: NEW ORDERS
--- NOTE | 2018-06-26 16:25 | NUR ---
[facility], lethargic, on non rebreather, ABGs done, pt intubated, MD Raven notified, on TPN, restraints on, v/s stable, no pain, family at the bedside.
[2018-06-26] MEDS ORDERED: SODIUM BICARBONATE SYR 50 MEQ/50 ML DISP.SYRIN IV ONE ×2 (16:30→20:30)
[2018-06-26] MEDS ORDERED: PROPOFOL 100 ML IV PRN (17:00)
[2018-06-26] MEDS: MEROPENEM 500 MG in IV NS 0.9% 50 ML IV SCH (17:37)
[2018-06-26] MEDS ORDERED: SUCCINYLCHOLINE CHLORIDE 20 MG/ML VIAL IV ONE (17:45)
[2018-06-26] MEDS: Magnesium 1GM/D5W 100ML PREMIX 100 ML IV SCH ×2 (18:29→19:31)
[2018-06-26] MEDS ORDERED: FEE PK DOSING 1 MIN EA MC ONE (18:57)
--- NOTE | 2018-06-26 19:00 | NUR ---
RECEIVED PATIENT ORALLY INTUBATED ON THE VENTILATOR ON AC MODE,PATIENT STUPOROUS,RESPONDS TO DEEP PAIN,ONLY SLIGHT GAG ,NO COUGH,BUT WITHDRAWS BOTH UPPER EXTREMITIES.ON SODIUM ACETATE DRIP VIA MATHEUS PICC LINE. BP LABILE FROM 80'S TO LOW 90'S.WILL CLOSELY MONITOR ,WILL START NEOSYNEPHRINE DRIP NEEDED.
[2018-06-26 19:39] LABS: ABG BASE EXCESS -22.2 mmol/L; ABG PCO2 30.8 mmHg (35.0-45.0); ABG PH 7.012 (7.350-7.450); ABG PO2 77.9 mmHg (75.0-100.0); AaDO2 604.3 mmHg; COHb 0.2 % (0.5-1.5); MetHb 0.6 % (0.0-1.5); O2Hb 88.3 % (94.0-97.0); PEEP,BG 0 cm H2O; SITE, ABG Right Radial; VT, ABG 650 mL
[2018-06-26] MEDS ORDERED: MICAFUNGIN SODIUM 100 MG in IV NS 0.9% 100 ML IV SCH (20:00)
--- NOTE | 2018-06-26 20:00 | NUR ---
ABG DRAWN BY RT.PH=7.0,HCO3-7.6 CALLED .MADE HIM AWARE ABOUT THE SHORTAGE OF NAHCO3 ,BUT STATES THATS WHAT THE PATIENT NEEDS,SO HE WANTS TO GIVE 2 AMPS OF NAHCO3 AND START ON NAHCO3 DRIP.STATES TO PUT THE ORDER AND JUST DO WHATEVER WE CAN IF WE CAN GIVE IT. CHARGE NURSE NORBERTO CALLED PHARMACY TO LET THEM KNOW OF THE ORDER,PHARMACY SAID WE CAN GIVE THE 2 AMPS IVP BUT THEY WILL NOT BE ABLE TO GIVE THE DRIP. 2020 CALLED BACK AGAIN SPOKE TO HIM AND MADE HIM AWARE OF WHAT IS AVAILABLE TO GIVE,HE SAID ITS FINE,GIVE WHATEVER WE CAN GIVE.
[2018-06-26] MEDS: PHENYLEPHRINE 40 MG in IV D5W 250 ML IV PRN ×2 (20:22→23:08)
[2018-06-26] MEDS ORDERED: Sodium Bicarbonate 100 MEQ in IV D5/0.45 NACL 1,000 ML IV PRN (20:30)
[2018-06-26] MEDS ORDERED: VANCOMYCIN 0.75 GM in IV D5W 250 ML IV SCH (21:00)
[2018-06-26] MEDS: Sodium Acetate 100 MEQ in IV D5W 1,000 ML IV PRN (21:29)
[2018-06-26] MEDS ORDERED: NOREPINEPHRINE 16 MG in IV D5W 500 ML IV PRN (21:30)
[2018-06-26] MEDS ORDERED: NOREPINEPHRINE 4 MG/4 ML AMPUL IV ONE (21:55)
--- NOTE | 2018-06-26 22:05 | NUR ---
LEVOPHEDE DRIP STARTED.BP STILL LOW,NEOSYNEPHRINE DRIP MAXIMUM DOSE.
[2018-06-26] MEDS: DEXTROSE 50%-WATER 50 ML DISP.SYRIN IV PRN (23:53)
[2018-06-27] VITALS (26 sets, daily range): BP systolic 58–105; BP diastolic 32–75
--- NOTE | 2018-06-27 | NUR ---
ENVIRONMENTAL SERVICES ASSISTANT NOTES REMAINS UNSTABLE,BP STILL LOW.PATIENT LESS RESPONSIVE,NO COUGH,NO GAG REFLEX.NO URINE OUTPUT. NOTED SKIN MOTTLED ALL OVER THE LOWER EXTREMITIES
[2018-06-27] MEDS ORDERED: PHENYLEPHRINE 10 MG/ML VIAL ONE ×2 (00:20→03:40)
[2018-06-27] MEDS: PHENYLEPHRINE 40 MG in IV D5W 250 ML IV PRN ×2 (00:46→02:53)
--- NOTE | 2018-06-27 01:00 | NUR ---
LINUX SYSTEMS ANALYST NOTES LEVOPHED DRIP NOW AT 30 MCG/MIN.NEOSYNEPHRINE STILL AT 300 MCG. IN THE UNIT ,AT BEDSIDE,UPDATED HIM ON THE PATIENT STATUS.MADE AWARE THAT PATIENT HAS NO URINE OUTPUT,AND PATIENT IS NOW UNRESPONSIVE WITH NO COUGH AND GAG AND CORNEAL REFLEX.
--- NOTE | 2018-06-27 02:00 | NUR ---
CRIMINAL DEFENSE ATTORNEY NOTES REMAINS UNSTABLE,BP STILL LABILE,BP DROPS WHEN TRIES TO WEAN DOWN PRESSORS.REMAINS UNRESPONSIVE.
[2018-06-27] MEDS: MEROPENEM 500 MG in IV NS 0.9% 50 ML IV SCH (04:58)
[2018-06-27] MEDS: DEXTROSE 50%-WATER 50 ML DISP.SYRIN IV PRN (04:58)
[2018-06-27 05:11] LABS: THYROID STIMULATING HORMONE 1.383 uIU/mL (0.358-3.74); URIC ACID 8.5 mg/dL (2.6-7.2)
--- NOTE | 2018-06-27 05:30 | NUR ---
GRAIN THRESHER NOTES HEART RATE DROPPING IN THE 40'S-LOW 50'S. IN AND OUT OFF JUNCTIONAL TO SINUS DEIRDRE WITH PVC'S TO WIDENED QRS AND BP DROPPING IN THE 60'S WITH PRESSORS AT MAXIMUM DOSE. CALLED FAMILY ,SPOKE TO SON NOEL AND UPDATED ON PATIENT'S VERY CRITICAL AND UNSTABLE CONDITION AND THE POSSIBILITY OF DOING CPR ,SON WANTS EVERYTHING TO BE DONE. Addendum: 06/27/18 at 0718 by MAHI ZEPEDA RN NOEL IS THE DAYANARA
[2018-06-27] MEDS: Sodium Acetate 100 MEQ in IV D5W 1,000 ML IV PRN (05:37)
[2018-06-27] MEDS ORDERED: NOREPINEPHRINE 4 MG/4 ML AMPUL IV ONE (05:45)
[2018-06-27 05:49] LABS: ABG BASE EXCESS -21.9 mmol/L; ABG OXYGEN SATURATION 81.9 % (92.0-98.5); ABG PCO2 43.3 mmHg (35.0-45.0); ABG PH 6.939 (7.350-7.450); ABG PO2 60.1 mmHg (75.0-100.0); AaDO2 609.6 mmHg; COHb 0.3 % (0.5-1.5); MetHb 0.6 % (0.0-1.5); O2Hb 81.2 % (94.0-97.0); PEEP,BG 0 cm H2O; SITE, ABG Right Radial; VT, ABG 650 mL
--- NOTE | 2018-06-27 05:52 | NUR ---
PT RECEIVED ORALLY INTUBATED 7.5 ETT 25 CM AT LIP. CUFF INFLATED. ETT SECURE. PT CURRENTLY ON MECHANICAL VENTILATOR WITH THE FOLLOWING SETTINGS: AC 18 650 100% +0. ABG PERFORMED THROUGHOUT SHIFT WITH NO ORDERS OR CHANGES MADE FOR SETTINGS. PT AMBU BAG AT BEDSIDE, [facility] VENT ALARMS SET, AUDIBLE, VENT PLUGGED IN TO RED OUTLET, AND BRAKES LOCKED. PT WAS SUCTIONED AND SCANT AMOUNT SECRETIONS DRAWN, THICK WHITE... RN DARINEL AWARE OF PATIENT CONDITION
[2018-06-27] MEDS: BLOOD SUGAR DIAGNOSTIC 1 EACH STRIP IN SCH (05:59)
[2018-06-27] MEDS ORDERED: SODIUM BICARBONATE SYR 50 MEQ/50 ML DISP.SYRIN IV ONE (06:00)
--- NOTE | 2018-06-27 06:10 | NUR ---
PERSONNEL CLERK NOTES RANDY MEYER AT BEDSIDE,VITAL SIGNS PROGRESSIVELY DETERIORATING -JUNCTIONAL TO ASYSTOLE CODE CALLED. 06 CODE ENDED.PATIENT PRONOUNCED BY RANDY MEYER WANGBERRY @ 06,FAMILY WAS MADE AWARE THEYWERE TAKKEN TO THE BEDSIDE. Addendum: 06/27/18 at 0625 by MAHI ZEPEDA RN PRONOUNCED BY PORSHA MALIN
[2018-06-27 06:33] LABS: BASOPHILS % (AUTO) 0.1 % (0.0-2.0); EOSINOPHILS % (AUTO) 0.2 % (0.0-6.0); HEMATOCRIT 48 % (39-51); HEMOGLOBIN 12.6 g/dL (13.5-17.5); LYMPHOCYTES # (AUTO) 1.6 /CMM (0.8-4.8); LYMPHOCYTES % (AUTO) 7.4 % (20.0-44.0); MEAN CORPUSCULAR HGB CONC 26 g/dl (31.0-36.0); MEAN CORPUSCULAR VOLUME 114 fL (80-96); MONOCYTES # (AUTO) 0.2 /CMM (0.1-1.30); NEUTROPHILS # (AUTO) 19.7 /CMM (1.8-8.9); NEUTROPHILS % (AUTO) 91.3 % (43.0-81.0); RED BLOOD CELL COUNT(AUTO) 4.22 MIL/uL (4.5-6.0); WHITE BLOOD COUNT (AUTO) 21.5 K/uL (4.3-11.0)
--- NOTE | 2018-06-27 06:50 | NUR ---
LOCOMOTIVE CRANE OPERATOR NOTES CALLED [facility] TO REPORT ,SPOKE TO TAYLA. 0700 BODY IS RELEASED BY [facility] WITH REFERENCE #[id number]
[2018-06-27 07:08] LABS: PLATELET COUNT (AUTO) 68 /CMM (150-450)
--- NOTE | 2018-06-27 07:30 | NUR ---
FAMILY AT BEDSIDE. SPOKE TO THEM REGARDING NEED TO DO POST MORTEM CARE. PER FAMILY -NO MORTUARY ARRANGEMENT MADE. REQUESTED TO COME BACK TO STAY WITH BODY POST GUERLINE CARE.
--- NOTE | 2018-06-27 09:30 | NUR ---
BODY BROUGHT TO [facility] WITH DENTURES ATTACHED. HOUSE CARPENTER BINDU BARRAGAN.
[2018-06-27 09:38] LABS: LYMPHOCYTES % (MANUAL) 11 % (16-48); MONOCYTES % (MANUAL) 2 % (0-11.0); NEUTROPHILS % (MANUAL) 87 (42-76)
== END 2018-06-27 06:14 | disposition expired | DRG 720 ==
LOC: MED 23:53 → ICU 06-26 13:46
PROVIDERS: ADMIT Internal Medicine; ATTEND Nurse Practitioner Acute Care
PROC: B548ZZA Ultrasonography of Superior Vena Cava, Guidance (ICD-10-PCS; principal; 2018-06-24)
PROC: 02HV33Z Insertion of Infusion Device into Superior Vena Cava, Percutaneous Approach (ICD-10-PCS; principal; 2018-06-24)
PROC: 5A1935Z Respiratory Ventilation, Less than 24 Consecutive Hours (ICD-10-PCS; 2018-06-26)
PROC: 0BH17EZ Insertion of Endotracheal Airway into Trachea, Via Natural or Artificial Opening (ICD-10-PCS; 2018-06-26)
PROC: 5A2204Z Restoration of Cardiac Rhythm, Single (ICD-10-PCS; 2018-06-27)
DX: A41.9 Sepsis, unspecified organism (principal); I21.A1 Myocardial infarction type 2; I46.9 Cardiac arrest, cause unspecified; E43 Unspecified severe protein-calorie malnutrition; K85.90 Acute pancreatitis without necrosis or infection, unspecified; N17.0 Acute kidney failure with tubular necrosis; J96.01 Acute respiratory failure with hypoxia; R65.21 Severe sepsis with septic shock; J96.02 Acute respiratory failure with hypercapnia; R57.1 Hypovolemic shock; E87.4 Mixed disorder of acid-base balance; E87.0 Hyperosmolality and hypernatremia; K56.7 Ileus, unspecified; K86.3 Pseudocyst of pancreas; F19.90 Other psychoactive substance use, unspecified, uncomplicated; I25.10 Atherosclerotic heart disease of native coronary artery without angina pectoris; N18.9 Chronic kidney disease, unspecified; I12.9 Hypertensive chronic kidney disease with stage 1 through stage 4 chronic kidney disease, or unspecified chronic kidney disease; Z98.62 Peripheral vascular angioplasty status; Z79.899 Other long term (current) drug therapy; I73.9 Peripheral vascular disease, unspecified; F17.200 Nicotine dependence, unspecified, uncomplicated; E78.5 Hyperlipidemia, unspecified; L97.529 Non-pressure chronic ulcer of other part of left foot with unspecified severity; K82.8 Other specified diseases of gallbladder; M62.84 Sarcopenia; I48.91 Unspecified atrial fibrillation; F03.90 Unspecified dementia, unspecified severity, without behavioral disturbance, psychotic disturbance, mood disturbance, and anxiety; G93.41 Metabolic encephalopathy; F10.10 Alcohol abuse, uncomplicated
CPT/HCPCS: 31720; 36415; 36569; 36600; 71045-TC; 74018; 80048-TC; 80053-TC; 80061-TC; 80076-TC; 82310-TC; 82803-TC; 82962-TC; 83690-TC; 83735-TC; 84100-TC; 84443-TC; 84478-TC; 84484-TC; 84550-TC; 85025-TC; 87040-TC; 87070-TC; 87081-TC; 90935-TC; 93307-TC; 94002-TC; 94003-TC; A4216; A4606; C1751; G0378; J0330; J1450; J1815; J2185; J2248; J2270; J2370; J3370; J3475; J3490; J7030; J7040; J7050; J7060; J7070